=== PATIENT | male | born 1940 | race Caucasian/White ===

== ENCOUNTER 2019-05-15 14:24 | Emergency (ER) | payer OTHER ==
--- OUTSIDE RECORDS SUMMARY | 2019-05-15 14:26 | XMS REPORT ---
:1940 Author Organization [facility] Address [address] [place] [address] Care Team Providers Name Role Phone CYNDY MARTÍNEZ Primary Care Provider Unavailable Problems This patient has no known problems. Allergies, Adverse Reactions, Alerts This patient has no known allergies or adverse reactions. Medications This patient has no known medications. Encounters Start End Encounter Admission Attending Care Care Encounter Date/Time Date/Time Type Type Clinicians Facility Department ID 2016-12-09 2016-12-09 Outpatient [facility] [id number] 14:23:00 14:23:00 2016-07-14 2016-07-14 Outpatient [facility] [id number] 12:59:00 12:59:00 Results Test Description Test Time Test Comments Text Results Atomic Results Result Comments XR Chest 2 Views 2018-12-17 14:31:59 Patient: RANJANA HURST Jr Date/Time12/17/2018 14:21 CDTReason for ExamR94.31 I49.5 I10 I45.10ReportHISTORY: R94.31 I49.5 I10 I45.10Location code: [id number]: 2 VIEW CHEST X-RAY.COMPARISON: NoneCOMMENT: PA and lateral views are provided. No acute infiltrate or effusion is seen. Cardiomediastinal silhouette is within normal limits. No acute bony abnormalities. A left-sided AICD is noted.IMPRESSION: No acute disease. Final Dictated by: MD Cline Roman PDictated DT/TM: 12/17/2018 2:31 pmSigned by: MD Cline Roman PSigned (Electronic Signature): 12/17/2018 2:31 pm Carotid Duplex 2018-03-26 16:37:17 Patient: RANJANA HURST Bilateral Date/Time03/26/2018 13:57 CSTReason for [id number] DOPPLERLOCATION CODE: R 16HISTORY: Dizziness on and off.TECHNIQUE: Static sonographic color duplex Doppler images with spectral analysis are provided for interpretation.FINDINGS:No significant atherosclerotic disease is appreciated within either the right or left common or internal carotid arteries. The visualized aspects of the external carotid arteries are unremarkable.Peak Systolic Velocity Right Carotid Left CarotidICA 75.7 cm/sec 67.7 cm/secCCA 99.4 cm/sec 89.5 cm/secECA 99.9 cm/sec 84.6 cm/secICA/CCA ratio 0.76 0.76Vertebral flow is antegrade bilaterally.IMPRESSION:1. No evidence of atherosclerotic disease within the visualized internal and common carotid arteries.2. The ICA/CCA ratios were normal bilaterally.Estimated (diameter reduction) with grayscale and color Doppler ultrasound based on similar criteria as NASCET criteria in reference to peak systolic velocity measurements. Final Dictated by: MD Villanueva Eniola FDictated DT/TM: 03/26/2018 4:35 pmSigned by: MD Villanueva Eniola FSigned (Electronic Signature): 03/26/2018 4:37 pm XR Chest 2 Views 2017-07-01 12:51:00 Patient: RANJANA HURST Date/Time07/01/2017 12:35 CDTReason for ExamShortness of breathReportEXAM: XR Chest 2 ViewsLOCATION: [id number]: Shortness of breathCOMPARISON: 07/14/2016FINDINGS:2 views of the chest.Dual-lead pacer device position unchanged.No pneumothorax.The lungs are clear. No pleural effusions are present. The mediastinal contours are unremarkable. No acute osseous findings are present.IMPRESSION:No acute cardiopulmonary abnormality. Final Dictated by: MD Rubio Haider ADictated DT/TM: 07/01/2017 12:50 pmSigned by: MD Rubio Haider ASigned (Electronic Signature): 07/01/2017 12:51 pm
--- NOTE | 2019-05-15 15:48 | ER ---
Nurse's Notes [facility] Name: Jomar Boone Age: 79 yrs Sex: Male : 1940 Arrival Date: 05/15/2019 Time: 14:27 Bed 24 Private MD: Diagnosis: Pain in right forearm-muscular tear Presentation: 05/14 14:35 Chief complaint: Patient states: Right arm pain and bruising for 1 week. After bowling ll1 2 days last week. + blood thinners. Coronavirus screen: The patient has NOT traveled to a country currently being monitored by the [facility] within the last 14 days. Ebola Screen: Patient denies travel to an Ebola-affected area in the 21 days before illness onset. Initial Sepsis Screen: Does the patient meet any 2 criteria? No. Patient's initial sepsis screen is negative. Does the patient have a suspected source of infection? No. Patient's initial sepsis screen is negative. Risk Assessment: Do you want to hurt yourself or someone else? Patient reports no desire to harm self or others. 14:35 Method Of Arrival: Ambulatory [facility] 14:35 Acuity: MIKY 3 [facility] 14:40 Onset of symptoms was May 08, 2019. 1 Triage Assessment: 14:37 General: Appears in no apparent distress. Behavior is calm, cooperative. Pain: ll1 Complains of pain in right arm Pain currently is 6 out of 10 on a pain scale. Quality of pain is described as aching, Pain began 1 week ago Is continuous. Historical: - Allergies: 14:40 No Known Allergies; ll1 - PMHx: 15:15 Atrial Fib; Pacemaker; Right BBB; Glaucoma; ll1 - PSHx: 15:15 Hernia repair; pacemaker; ll1 - Immunization history:: Flu vaccine is up to date. - Social history:: Smoking status: Patient denies any tobacco usage or history of. Patient/guardian denies using alcohol, street drugs, tobacco products. - Family history:: not pertinent. Screenin:36 Abuse screen: Denies threats or abuse. Nutritional screening: No deficits noted. ll1 Tuberculosis screening: No symptoms or risk factors identified. Fall Risk IV access (20 points). Ambulatory Aid- None/Bed Rest/Nurse Assist (0 pts). Gait- Weak (10 pts.). Total Cheung Fall Scale indicates Low Risk Score (25-44 pts). Assessment: 15:12 General: Appears in no apparent distress. Behavior is calm, cooperative. Neuro: No ll1 deficits noted. Cardiovascular: No deficits noted. Respiratory: No deficits noted. GI: No deficits noted. Derm: Bruising that is dark purple, brown, Reports. Musculoskeletal: Circulation, motion, and sensation intact. Capillary refill < 3 seconds, Range of motion: intact in all extremities, + extensive bruising to right forearm. Reports pain in right arm since 6 days.. 16:10 Reassessment: No changes from previously documented assessment. Patient and/or family ll1 updated on plan of care and expected duration. Pain level reassessed. Patient is alert, oriented x 3, equal unlabored respirations, skin warm/dry/pink. Vital Signs: 14:37 BP 134 / 64; Pulse 64; Resp 20; Temp 97.9(O); Pulse Ox 98% ; lt1 16:14 BP 124 / 72; Pulse 60; Resp 17; Temp 97.9; Pulse Ox 95% ; Pain 5/10; ll1 ED Course: 14:27 Patient arrived in ED. mr 14:29 Christy Lemon, RN is Primary Nurse. ll1 14:30 Etienne Feng MD is Attending Physician. kayley 14:36 Triage completed. ll1 14:38 Arm band placed on Patient placed in an exam room. ll1 14:38 No provider procedures requiring assistance completed. ll1 14:40 Patient has correct armband on for positive identification. Bed in low position. Call ll1 light in reach. Side rails up X 1. 14:56 Door closed. Lights dimmed. Warm blanket given. lt1 15:42 US Extremity Venous Unilateral Ltd In Process Unspecified. EDMS 15:47 Ultrasound completed. Patient tolerated well. Notified ED Physician . sg3 15:48 Raimundo Traylor MD is Referral Physician. kayley 15:58 Forearm Right XRAY In Process Unspecified. EDMS 16:13 Patient did not have IV access during this emergency room visit. ll1 Administered Medications: No medications were administered Outcome: 15:48 Discharge ordered by . kayley 16:13 Discharged to home ambulatory. ll1 16:13 Condition: good 16:13 Discharge instructions given to patient, Instructed on discharge instructions, follow up and referral plans. medication usage, Demonstrated understanding of instructions, follow-up care, medications, sling use Prescriptions given X 2. 16:15 Patient left the ED. ll1 Signatures: Dispatcher [employer] EDEtienne Irwin MD MD cha Rivera, Carolee Shekhar, Stephanie sg3 Jaki Olsen lt1 Christy Lemon RN RN ll1
--- NOTE | 2019-05-15 15:49 | EDPHYS ---
Physician Documentation [facility] Name: Jomar Boone Age: 79 yrs Sex: Male : 1940 Arrival Date: 05/15/2019 Time: 14:27 Bed 24 Private MD: ED Physician Etienne Feng HPI: 05/14 14:42 This 79 yrs old Male presents to ER via Ambulatory with complaints of Arm kayley Pain. 14:42 The patient or guardian complains of decreased range of motion, pain, swelling, kayley tenderness. The complaints affect the dorsal aspect of right forearm and palmar aspect of right forearm. Context: The problem was sustained at a sports field or court. Onset: The symptoms/episode began/occurred 3 day(s) ago. Treatment prior to arrival includes: no previous treatment. Modifying factors: The symptoms are alleviated by nothing. the symptoms are aggravated by movement, lifting weight, bending arm. Associated signs and symptoms: The patient has no apparent associated signs or symptoms. The patient has not experienced similar symptoms in the past. Historical: - Allergies: 14:40 No Known Allergies; ll1 - PMHx: 15:15 Atrial Fib; Pacemaker; Right BBB; Glaucoma; ll1 - PSHx: 15:15 Hernia repair; pacemaker; ll1 - Immunization history:: Flu vaccine is up to date. - Social history:: Smoking status: Patient denies any tobacco usage or history of. Patient/guardian denies using alcohol, street drugs, tobacco products. - Family history:: not pertinent. ROS: 14:42 Constitutional: Negative for fever, chills, and weight loss, Eyes: Negative for injury, kayley pain, redness, and discharge, ENT: Negative for injury, pain, and discharge, Neck: Negative for injury, pain, and swelling, Cardiovascular: Negative for chest pain, palpitations, and edema, Respiratory: Negative for shortness of breath, cough, wheezing, and pleuritic chest pain, Abdomen/GI: Negative for abdominal pain, nausea, vomiting, diarrhea, and constipation, Back: Negative for injury and pain, : Negative for injury, bleeding, discharge, and swelling, Skin: Negative for injury, rash, and discoloration, Neuro: Negative for headache, weakness, numbness, tingling, and seizure, Psych: Negative for depression, anxiety, suicide ideation, homicidal ideation, and hallucinations, Allergy/Immunology: Negative for hives, rash, and allergies, Endocrine: Negative for neck swelling, polydipsia, polyuria, polyphagia, and marked weight changes, Hematologic/Lymphatic: Negative for swollen nodes, abnormal bleeding, and unusual bruising. 14:42 MS/extremity: Positive for injury or acute deformity, pain, swelling, tenderness, of the dorsal aspect of right forearm and palmar aspect of right forearm. Exam: 14:42 Constitutional: This is a well developed, well nourished patient who is awake, alert, kayley and in no acute distress. Head/Face: Normocephalic, atraumatic. Eyes: Pupils equal round and reactive to light, extra-ocular motions intact. Lids and lashes normal. Conjunctiva and sclera are non-icteric and not injected. Cornea within normal limits. Periorbital areas with no swelling, redness, or edema. ENT: Nares patent. No nasal discharge, no septal abnormalities noted. Tympanic membranes are normal and external auditory canals are clear. Oropharynx with no redness, swelling, or masses, exudates, or evidence of obstruction, uvula midline. Mucous membranes moist. Neck: Trachea midline, no thyromegaly or masses palpated, and no cervical lymphadenopathy. Supple, full range of motion without nuchal rigidity, or vertebral point tenderness. No Meningismus. Chest/axilla: Normal chest wall appearance and motion. Nontender with no deformity. No lesions are appreciated. Cardiovascular: Regular rate and rhythm with a normal S1 and S2. No gallops, murmurs, or rubs. Normal PMI, no JVD. No pulse deficits. Respiratory: Lungs have equal breath sounds bilaterally, clear to auscultation and percussion. No rales, rhonchi or wheezes noted. No increased work of breathing, no retractions or nasal flaring. Abdomen/GI: Soft, non-tender, with normal bowel sounds. No distension or tympany. No guarding or rebound. No evidence of tenderness throughout. Back: No spinal tenderness. No costovertebral tenderness. Full range of motion. Male : Normal genitalia with no discharge or lesions. Skin: Warm, dry with normal turgor. Normal color with no rashes, no lesions, and no evidence of cellulitis. Neuro: Awake and alert, GCS 15, oriented to person, place, time, and situation. Cranial nerves II-XII grossly intact. Motor strength 5/5 in all extremities. Sensory grossly intact. Cerebellar exam normal. Normal gait. Psych: Awake, alert, with orientation to person, place and time. Behavior, mood, and affect are within normal limits. 14:42 Musculoskeletal/extremity: Extremities: decreased ROM, ecchymosis, pain, ROM: limited passive range of motion, limited active range of motion due to pain, Circulation is intact in all extremities. Sensation intact. Compartment Syndrome exam of affected extremity: is normal. Joints: All joints appear normal with full range of motion. DVT Exam: negative Homans' sign noted on exam, no appreciated bluish discoloration, no erythema, no increased warmth, pain, swelling, tenderness. Vital Signs: 14:37 BP 134 / 64; Pulse 64; Resp 20; Temp 97.9(O); Pulse Ox 98% ; lt1 16:14 BP 124 / 72; Pulse 60; Resp 17; Temp 97.9; Pulse Ox 95% ; Pain 5/10; ll1 MDM: 14:30 Patient medically screened. [facility] 14:45 Data reviewed: vital signs, nurses notes, radiologic studies, plain films. [facility] 05/14 14:42 Order name: Forearm Right XRAY [facility] 05/14 14:42 Order name: US Extremity Venous Unilateral Ltd [facility] 05/14 14:42 Order name: Sling; Complete Time: 16:04 [facility] Administered Medications: No medications were administered Disposition: 05/15/19 15:48 Discharged to Home. Impression: Pain in right forearm - muscular tear. - Condition is Stable. - Discharge Instructions: Muscle Strain, Musculoskeletal Pain, Muscle Strain, [id number]. - Prescriptions for Tylenol- Codeine #3 300-30 mg Oral Tablet - take 2 tablets by ORAL route every 6 hours As needed; 24 tablet. Motrin IB 200 mg Oral Tablet - take 2 tablet by ORAL route every 6 hours As needed as needed with food; 30 tablet. - Medication Reconciliation Form, Thank You Letter, Antibiotic Education, Prescription Opioid Use form. - Follow up: Private Physician; When: 2 - 3 days; Reason: Recheck today's complaints, Continuance of care, Re-evaluation by your physician. Follow up: Raimundo Traylor; When: 2 - 3 days; Reason: Recheck today's complaints, Continuance of care, Re-evaluation by your physician. - Problem is new. - Symptoms have improved. Signatures: Dispatcher [employer] EDEtienne Irwin MD MD cha Lewis, Lynsay RN RN ll1 Corrections: (The following items were deleted from the chart) 16:15 15:48 05/15/2019 15:48 Discharged to Home. Impression: Pain in right forearm - muscular ll1 tear. Condition is Stable. Discharge Instructions: Muscle Strain, Musculoskeletal Pain, Muscle Strain, [id number]. Prescriptions for Tylenol-Codeine #3 300-30 mg Oral Tablet - take 2 tablets by ORAL route every 6 hours As needed; 24 tablet, Motrin IB 200 mg Oral Tablet - take 2 tablet by ORAL route every 6 hours As needed as needed with food; 30 tablet. and Forms are Medication Reconciliation Form, Thank You Letter, Antibiotic Education, Prescription Opioid Use. Follow up: Private Physician; When: 2 - 3 days; Reason: Recheck today's complaints, Continuance of care, Re-evaluation by your physician. Follow up: Raimundo Traylor; When: 2 - 3 days; Reason: Recheck today's complaints, Continuance of care, Re-evaluation by your physician. Problem is new. Symptoms have improved. kayley
--- NOTE | 2019-05-15 16:19 | RAD REPORT ---
EXAM DESCRIPTION: US - Extremity Venous Uni Ltd - 05/15/2019 3:42 pm CLINICAL HISTORY: Right arm pain and swelling COMPARISON: None. TECHNIQUE: Real-time sonographic evaluation of the right upper extremity deep venous systems was per formed. FINDINGS: Normal compressibility, flow augmentation, phasic flow and spontaneous flow are identified in the right upper extremity deep venous system. No intraluminal filling defects seen. Internal jugu lar and subclavian veins are normal as well. IMPRESSION: No DVT in the right upper extremity.
[2019-05-15 16:21] VITALS: TEMP 97.9
[2019-05-15 16:23] VITALS: BP 124/72; O2SAT 95
--- NOTE | 2019-05-15 16:23 | RAD REPORT ---
EXAM DESCRIPTION: RAD - Forearm Right - 05/15/2019 3:57 pm CLINICAL HISTORY: PAINno trauma history COMPARISON: No comparisons FINDINGS: No fracture is identified. There is no dislocation or periosteal reaction noted. No foreign body or other soft tissue abnormality. IMPRESSION: Negative right forearm examination.
== END 2019-05-15 16:15 | disposition home or self-care (01) ==
LOC: ER 14:24
DX: S56.911A Strain of unspecified muscles, fascia and tendons at forearm level, right arm, initial encounter (principal); Z95.0 Presence of cardiac pacemaker
CPT/HCPCS: 93971; 99283